=== PATIENT | male | born 1990 | race Hispanic/Latino ===

== ENCOUNTER 2021-02-17 23:24 | Emergency (ER) | payer OTHER ==
[~2021-02-17] VITALS: Ht 162.6 cm; Wt 72.6 kg
[2021-02-18 00:20] LABS: AMPHET/METH SCREEN,URINE POSITIVE (NEGATIVE); BARBITURATE SCREEN, URINE NEGATIVE (NEGATIVE); BENZODIAZEPINES SCREEN,URINE NEGATIVE (NEGATIVE); CANNABINOID SCREEN,URINE NEGATIVE (NEGATIVE); COCAINE SCREEN,URINE NEGATIVE (NEGATIVE); OPIATE SCREEN,URINE NEGATIVE (NEGATIVE); PHENCYCLIDINE SCREEN,URINE NEGATIVE (NEGATIVE)
[2021-02-18 00:27] LABS: CARBON DIOXIDE 25 mmol/L (21-32); CHLORIDE 102 mmol/L (101-111); GLOMERULAR FILTR. RATE CALC 94 mL/min (>60); GLUCOSE,RANDOM 118 mg/dL (70-105); POTASSIUM 3.7 mmol/L (3.5-5.1); SODIUM SERUM 139 mmol/L (136-145); UREA NITROGEN, BLOOD 10 mg/dL (7-18)
[2021-02-18 00:33] LABS: ALANINE AMINOTRANSFERASE 94 U/L (12-78); ALCOHOL, BLOOD < 3 mg/dL (0-10); ASPARTATE AMINOTRANSFERASE 47 U/L (10-37); BILIRUBIN,TOTAL 0.4 mg/dL (0.2-1.0)
[2021-02-18 00:40] LABS: BASOPHILS % (AUTO) 0.3 % (0.0-5.0); EOSINOPHILS % (AUTO) 2.3 % (0.0-8.0); HEMATOCRIT 43.2 % (42-54); LYMPHOCYTES % (AUTO) 16.1 % (21.0-51.0); MEAN CORPUSCULAR HEMOGLOBIN 27.5 pg (27.0-33.0); MEAN CORPUSCULAR HGB CONC 33.6 g/dL (32.0-36.0); MONOCYTES % (AUTO) 6.8 % (3.0-13.0); NEUTROPHILS % (AUTO) 72.8 % (40.0-77.0); PLATELET COUNT (AUTO) 256 K/uL (130-400); RED BLOOD CELL COUNT(AUTO) 5.27 MIL/uL (4.50-6.20); RED CELL DISTRIBUTION WIDTH 13.1 % (11.0-15.5); WHITE BLOOD COUNT (AUTO) 3.5 K/uL (4.8-10.8)
[2021-02-18 02:20] VITALS: BP 112/75
== END 2021-02-18 02:00 | disposition home or self-care (01) ==
LOC: EDH 23:24
DX: R56.9 Unspecified convulsions (principal); F15.10 Other stimulant abuse, uncomplicated; F13.239 Sedative, hypnotic or anxiolytic dependence with withdrawal, unspecified
CPT/HCPCS: 36415; 70450; 80053; 80305; 85025

== ENCOUNTER 2021-10-01 14:14 | Inpatient (IN) | payer OTHER ==
[~2021-10-01] VITALS: Ht 170.2 cm; Wt 68.0 kg
[2021-10-01 14:55] LABS: BASOPHILS % (AUTO) 0.2 % (0.0-5.0); EOSINOPHILS % (AUTO) 0.6 % (0.0-8.0); LYMPHOCYTES % (AUTO) 23.8 % (21.0-51.0); MEAN CORPUSCULAR HEMOGLOBIN 28.8 pg (27.0-33.0); MEAN CORPUSCULAR HGB CONC 34.1 g/dL (32.0-36.0); MEAN CORPUSCULAR VOLUME 84.7 fL (79-99); MONOCYTES % (AUTO) 6.9 % (3.0-13.0); NEUTROPHILS % (AUTO) 63.9 % (40.0-77.0); PLATELET COUNT (AUTO) 339 K/uL (130-400); RED BLOOD CELL COUNT(AUTO) 3.78 MIL/uL (4.50-6.20); RED CELL DISTRIBUTION WIDTH 14.5 % (11.0-15.5); WHITE BLOOD COUNT (AUTO) 10.7 K/uL (4.8-10.8)
[2021-10-01 15:14] LABS: CREATININE 0.9 mg/dL (0.5-1.5); POTASSIUM 4.1 mmol/L (3.5-5.1)
[2021-10-01 15:19] LABS: ALBUMIN 2.4 g/dL (3.5-5.0); TOTAL PROTEIN, SERUM 7.8 g/dL (6.0-8.3)
[2021-10-01] MEDS ORDERED: ACETAMINOPHEN 500 MG TABLET PO ONE (17:30)
[2021-10-01] MEDS ORDERED: NYSTATIN 100000 UNIT/ML 5ML UDCUP PO SCH (17:30)
[2021-10-01] MEDS ORDERED: ACETAMINOPHEN 650 MG/20.3 ML UDCUP PO ONE (17:30)
[2021-10-01] MEDS ORDERED: 0.9%NACL 1000ML 1,000 ML IV ONE (17:30)
[2021-10-01] MEDS ORDERED: ACETAMINOPHEN 650 MG/20.3 ML UDCUP PEG ONE (17:30)
[2021-10-01] MEDS ORDERED: ACETAMINOPHEN 650 MG/20.3 ML UDCUP PEG PRN (18:00)
[2021-10-01] MEDS ORDERED: CEFTRIAXONE 2GM VIAL IVP SCH (18:00)
[2021-10-01 18:01] LABS: ABG BASE EXCESS -4.3 mmol/L (-2.0-3.0); ABG HCO3 18.5 mmol/L (21.0-28.0); ABG OXYGEN SATURATION 91.7 % (95.0-99.0); ABG PCO2 27 mmHg (35-48)
[2021-10-01] MEDS ORDERED: BACTRIM IV ONE (18:30)
[2021-10-01] MEDS ORDERED: PANTOPRAZOLE 40 MG/VIAL IVP SCH (18:30)
[2021-10-01] MEDS ORDERED: WATER IV ONE (18:30)
[2021-10-01] MEDS ORDERED: IPRATROPIUM/ALBUTEROL SULFATE 3 ML SOLUTION IH PRN (18:30)
[2021-10-01] MEDS ORDERED: PHARMACY COMMUNICATION MISC SCH (18:30)
[2021-10-01] MEDS ORDERED: DEXTROSE 5% IV ONE (18:30)
[2021-10-01] MEDS: 0.9%NACL 1000ML 1,000 ML IV SCH (18:49)
[2021-10-01] MEDS: DOXYCYCLINE 100MG+NS 250ML IV SCH (18:49)
[2021-10-01] MEDS ORDERED: THIAMINE HCL 100 MG/ML 2ML VIAL IVP SCH (19:00)
[2021-10-01 19:41] LABS: CRP QUANTITATIVE 130.1 mg/L (0.00-9.0); MAGNESIUM 1.9 mg/dL (1.80-2.40)
[2021-10-01 19:42] LABS: INR 1.06 (0.85-1.15); PROTHROMBIN TIME 11.5 SEC (9.6-11.6)
[2021-10-01 19:43] LABS: PARTIAL THROMBOPLASTIN TIME 29.1 SEC (26.3-35.5)
[2021-10-01] MEDS: SOLU-MEDROL 40MG VIAL IVP SCH (20:21)
[2021-10-01 21:25] LABS: CREATININE 0.7 mg/dL (0.5-1.5); POTASSIUM 3.3 mmol/L (3.5-5.1)
[2021-10-01] MEDS ORDERED: CEFEPIME HCL 2 GM VIAL IVP SCH (23:00)
[2021-10-01] MEDS ORDERED: ROCURONIUM BROMIDE 10MG/1ML 5ML VL IV ONE ×2 (23:19)
[2021-10-01] MEDS ORDERED: ETOMIDATE 20MG VIAL IVP ONE (23:19)
[2021-10-02] VITALS (18 sets, daily range): BP systolic 97–132; BP diastolic 40–81
[2021-10-02] MEDS ORDERED: ACETAMINOPHEN 650 MG/20.3 ML UDCUP PO PRN
[2021-10-02] MEDS: FLUCONAZOLE 200 MG/NS 100 ML 100 ML IV SCH ×2 (01:33→08:51)
[2021-10-02 02:31] LABS: HEPATITIS A IGM ANTIBODY Non-Reactive (Nonreactive); HEPATITIS B CORE IGM ANTIBODY Non-Reactive (Negative); HEPATITIS B SURFACE ANTIGEN Non-Reactive (Nonreactive); HEPATITIS C ANTIBODY Non-Reactive (Nonreactive)
[2021-10-02] MEDS: BACTRIM IV SCH ×4 (05:57→20:33)
[2021-10-02] MEDS: WATER IV SCH ×4 (05:57→20:33)
[2021-10-02] MEDS: DEXTROSE 5% IV SCH ×4 (05:57→20:33)
[2021-10-02] MEDS: DOXYCYCLINE 100MG+NS 250ML IV SCH ×2 (05:57→16:58)
[2021-10-02] MEDS: SOLU-MEDROL 40MG VIAL IVP SCH ×5 (05:57→23:15)
[2021-10-02 06:12] LABS: BASOPHILS % (AUTO) 0.2 % (0.0-5.0); EOSINOPHILS % (AUTO) 0.2 % (0.0-8.0); HEMATOCRIT 30.4 % (42-54); LYMPHOCYTES % (AUTO) 17.1 % (21.0-51.0); MEAN CORPUSCULAR HEMOGLOBIN 28.1 pg (27.0-33.0); MEAN CORPUSCULAR HGB CONC 31.9 g/dL (32.0-36.0); MEAN CORPUSCULAR VOLUME 88.1 fL (79-99); MONOCYTES % (AUTO) 2.6 % (3.0-13.0); NEUTROPHILS % (AUTO) 73.1 % (40.0-77.0); PLATELET COUNT (AUTO) 315 K/uL (130-400); RED BLOOD CELL COUNT(AUTO) 3.45 MIL/uL (4.50-6.20); RED CELL DISTRIBUTION WIDTH 14.7 % (11.0-15.5); WHITE BLOOD COUNT (AUTO) 6.2 K/uL (4.8-10.8)
[2021-10-02 06:27] LABS: ALBUMIN 1.8 g/dL (3.5-5.0); CREATININE 0.7 mg/dL (0.5-1.5); TOTAL PROTEIN, SERUM 6.2 g/dL (6.0-8.3)
[2021-10-02] MEDS: BUDESONIDE 0.5 MG/2 ML INH IH SCH ×2 (06:37→19:57)
[2021-10-02] MEDS: GUAIFENESIN-CODEINE 5 ML SYRUP PO PRN ×2 (08:51→22:03)
[2021-10-02] MEDS: ENOXAPARIN SODIUM 40 MG/0.4 ML SYRINGE SQ SCH (08:51)
[2021-10-02 10:02] LABS: RAPID PLASMA REAGIN REACTIVE (NONREACTIVE); RAPID PLASMA REAGIN TITER REACTIVE >1:16 (NONREACTIVE)
[2021-10-02] MEDS ORDERED: SODIUM CHLORIDE 7% INHALATION 4 ML VIAL.NEB IH ONE (11:01)
[2021-10-02] MEDS: 0.9%NACL 1000ML 1,000 ML IV SCH ×2 (11:22→23:16)
[2021-10-02] MEDS: NYSTATIN 100000 UNIT/ML 5ML UDCUP PO SCH ×3 (11:22→20:33)
[2021-10-02] MEDS: CEFEPIME HCL 2 GM VIAL IVP SCH ×2 (15:20→22:02)
[2021-10-03] VITALS: BP 110/67
[2021-10-03] MEDS: DEXTROSE 5% IV SCH ×4 (03:11→21:14)
[2021-10-03] MEDS: WATER IV SCH ×4 (03:11→21:14)
[2021-10-03] MEDS: BACTRIM IV SCH ×4 (03:11→21:14)
[2021-10-03 04:01] LABS: BASOPHILS % (AUTO) 0.1 % (0.0-5.0); HEMATOCRIT 28.6 % (42-54); LYMPHOCYTES % (AUTO) 11.7 % (21.0-51.0); MEAN CORPUSCULAR HEMOGLOBIN 28.5 pg (27.0-33.0); MEAN CORPUSCULAR HGB CONC 32.9 g/dL (32.0-36.0); MEAN CORPUSCULAR VOLUME 86.7 fL (79-99); MONOCYTES % (AUTO) 4.4 % (3.0-13.0); NEUTROPHILS % (AUTO) 78.3 % (40.0-77.0); PLATELET COUNT (AUTO) 315 K/uL (130-400); RED CELL DISTRIBUTION WIDTH 14.6 % (11.0-15.5); WHITE BLOOD COUNT (AUTO) 7.9 K/uL (4.8-10.8)
[2021-10-03 04:02] VITALS: BP 117/65
[2021-10-03 04:31] LABS: ALBUMIN 1.7 g/dL (3.5-5.0); CREATININE 0.7 mg/dL (0.5-1.5); POTASSIUM 4.5 mmol/L (3.5-5.1)
[2021-10-03] MEDS: DOXYCYCLINE 100MG+NS 250ML IV SCH ×2 (05:26→18:12)
[2021-10-03] MEDS ORDERED: SODIUM CHLORIDE 7% INHALATION 4 ML VIAL.NEB IH ONE (06:19)
[2021-10-03] MEDS: CEFEPIME HCL 2 GM VIAL IVP SCH ×3 (06:30→22:41)
[2021-10-03] MEDS: BUDESONIDE 0.5 MG/2 ML INH IH SCH ×2 (06:47→19:14)
[2021-10-03 08:00] VITALS: BP 100/62
[2021-10-03] MEDS: FLUCONAZOLE 200 MG/NS 100 ML 100 ML IV SCH ×2 (08:23→09:00)
[2021-10-03] MEDS: ENOXAPARIN SODIUM 40 MG/0.4 ML SYRINGE SQ SCH (08:24)
[2021-10-03] MEDS: PANTOPRAZOLE 40 MG/VIAL IVP SCH (08:25)
[2021-10-03] MEDS: SOLU-MEDROL 40MG VIAL IVP SCH ×3 (08:25→21:13)
[2021-10-03] MEDS: NYSTATIN 100000 UNIT/ML 5ML UDCUP PO SCH ×3 (09:44→21:13)
[2021-10-03 11:52] LABS: APPEARANCE,URINE SL CLOUDY (CLEAR); BILIRUBIN,URINE NEGATIVE (NEGATIVE); COLOR,URINE YELLOW (YELLOW); GLUCOSE, URINE (UA) NEGATIVE (NEGATIVE); KETONES,URINE NEGATIVE (NEGATIVE); LEUKOCYTE ESTERASE ,URINE NEGATIVE (NEGATIVE); NITRATE,URINE NEGATIVE (NEGATIVE); OCCULT BLOOD,URINE MODERATE (NEGATIVE); PH,URINE 6.5 (5.0-8.0); PROTEIN,URINE NEGATIVE (NEGATIVE); UROBILINOGEN,URINE 0.2 mg/dL (0.2-1.0)
[2021-10-03 12:00] VITALS: BP 108/62
[2021-10-03 12:01] LABS: AMPHET/METH SCREEN,URINE NEGATIVE (NEGATIVE); BARBITURATE SCREEN, URINE NEGATIVE (NEGATIVE); BENZODIAZEPINES SCREEN,URINE NEGATIVE (NEGATIVE); CANNABINOID SCREEN,URINE NEGATIVE (NEGATIVE); COCAINE SCREEN,URINE NEGATIVE (NEGATIVE); OPIATE SCREEN,URINE POSITIVE (NEGATIVE); PHENCYCLIDINE SCREEN,URINE NEGATIVE (NEGATIVE)
[2021-10-03 12:06] LABS: BACTERIA,URINE Few /HPF (None Seen); RBC,URINE >100 /HPF (0-1); WBC,URINE 0-1 /HPF (0-1)
[2021-10-03 16:00] VITALS: BP 103/60
[2021-10-03] MEDS ORDERED: GUAIFENESIN-DM 200/20 MG 10 ML PO PRN (18:30)
[2021-10-03] MEDS: GUAIFENESIN-CODEINE 5 ML SYRUP PO PRN (19:48)
[2021-10-03 20:00] VITALS: BP 111/53
[2021-10-04] VITALS (7 sets, daily range): BP systolic 94–154; BP diastolic 51–93
[2021-10-04] MEDS: WATER IV SCH ×4 (03:16→21:31)
[2021-10-04] MEDS: BACTRIM IV SCH ×4 (03:16→21:31)
[2021-10-04] MEDS: DEXTROSE 5% IV SCH ×4 (03:16→21:31)
[2021-10-04] MEDS: GUAIFENESIN-CODEINE 5 ML SYRUP PO PRN ×2 (03:24→11:15)
[2021-10-04] MEDS: SOLU-MEDROL 40MG VIAL IVP SCH ×4 (03:24→21:10)
[2021-10-04 03:56] LABS: BASOPHILS % (AUTO) 0.2 % (0.0-5.0); HEMATOCRIT 33.6 % (42-54); LYMPHOCYTES % (AUTO) 7.4 % (21.0-51.0); MEAN CORPUSCULAR HEMOGLOBIN 28.6 pg (27.0-33.0); MEAN CORPUSCULAR HGB CONC 32.7 g/dL (32.0-36.0); MEAN CORPUSCULAR VOLUME 87.5 fL (79-99); MONOCYTES % (AUTO) 5.8 % (3.0-13.0); NEUTROPHILS % (AUTO) 80.5 % (40.0-77.0); PLATELET COUNT (AUTO) 407 K/uL (130-400); RED BLOOD CELL COUNT(AUTO) 3.84 MIL/uL (4.50-6.20); RED CELL DISTRIBUTION WIDTH 14.8 % (11.0-15.5); WHITE BLOOD COUNT (AUTO) 9.4 K/uL (4.8-10.8)
[2021-10-04 04:34] LABS: ALBUMIN 1.9 g/dL (3.5-5.0); CREATININE 0.8 mg/dL (0.5-1.5); POTASSIUM 4.4 mmol/L (3.5-5.1); THYROID STIMULATING HORMONE 0.53 uIU/mL (0.36-3.74); TOTAL PROTEIN, SERUM 6.3 g/dL (6.0-8.3)
[2021-10-04 04:43] LABS: % IRON SATURATION 80.7 % (30-44)
[2021-10-04] MEDS: DOXYCYCLINE 100MG+NS 250ML IV SCH ×2 (05:53→18:09)
[2021-10-04] MEDS: CEFEPIME HCL 2 GM VIAL IVP SCH ×3 (06:15→22:27)
[2021-10-04] MEDS ORDERED: SODIUM CHLORIDE 7% INHALATION 4 ML VIAL.NEB IH ONE (06:21)
[2021-10-04] MEDS: BUDESONIDE 0.5 MG/2 ML INH IH SCH ×2 (07:00→18:00)
[2021-10-04] MEDS: ENOXAPARIN SODIUM 40 MG/0.4 ML SYRINGE SQ SCH (08:55)
[2021-10-04] MEDS: PANTOPRAZOLE 40 MG/VIAL IVP SCH (08:55)
[2021-10-04] MEDS: NYSTATIN 100000 UNIT/ML 5ML UDCUP PO SCH ×3 (08:55→21:10)
[2021-10-04] MEDS: FLUCONAZOLE 200 MG/NS 100 ML 100 ML IV SCH ×2 (08:56→09:00)
[2021-10-04] MEDS: BUSPIRONE HCL 5 MG TABLET PO SCH ×3 (14:23→21:10)
[2021-10-05] VITALS: BP 99/52
[2021-10-05] MEDS: SOLU-MEDROL 40MG VIAL IVP SCH ×4 (02:31→21:03)
[2021-10-05] MEDS: GUAIFENESIN-CODEINE 5 ML SYRUP PO PRN ×2 (02:32→22:44)
[2021-10-05] MEDS: BACTRIM IV SCH ×4 (02:46→22:43)
[2021-10-05] MEDS: WATER IV SCH ×4 (02:46→22:43)
[2021-10-05] MEDS: DEXTROSE 5% IV SCH ×4 (02:46→22:43)
[2021-10-05 04:00] VITALS: BP 92/45
[2021-10-05 04:20] LABS: BASOPHILS % (AUTO) 0.3 % (0.0-5.0); HEMATOCRIT 31.6 % (42-54); LYMPHOCYTES % (AUTO) 7.5 % (21.0-51.0); MEAN CORPUSCULAR HEMOGLOBIN 28.4 pg (27.0-33.0); MEAN CORPUSCULAR HGB CONC 32.6 g/dL (32.0-36.0); MEAN CORPUSCULAR VOLUME 87.1 fL (79-99); MONOCYTES % (AUTO) 4.2 % (3.0-13.0); NEUTROPHILS % (AUTO) 82.5 % (40.0-77.0); PLATELET COUNT (AUTO) 328 K/uL (130-400); RED BLOOD CELL COUNT(AUTO) 3.63 MIL/uL (4.50-6.20); WHITE BLOOD COUNT (AUTO) 6.9 K/uL (4.8-10.8)
[2021-10-05 04:47] LABS: ALBUMIN 1.8 g/dL (3.5-5.0); CREATININE 0.8 mg/dL (0.5-1.5); POTASSIUM 4.4 mmol/L (3.5-5.1); TOTAL PROTEIN, SERUM 5.7 g/dL (6.0-8.3)
[2021-10-05] MEDS: CEFEPIME HCL 2 GM VIAL IVP SCH ×3 (05:01→22:43)
[2021-10-05] MEDS: DOXYCYCLINE 100MG+NS 250ML IV SCH ×2 (05:53→21:10)
[2021-10-05 08:00] VITALS: BP 113/59
[2021-10-05] MEDS: FLUCONAZOLE 200 MG/NS 100 ML 100 ML IV SCH ×2 (09:00→11:12)
[2021-10-05] MEDS: BUDESONIDE 0.5 MG/2 ML INH IH SCH ×2 (09:51→18:27)
[2021-10-05] MEDS: ENOXAPARIN SODIUM 40 MG/0.4 ML SYRINGE SQ SCH (11:11)
[2021-10-05] MEDS: BUSPIRONE HCL 5 MG TABLET PO SCH ×2 (11:11→21:02)
[2021-10-05] MEDS: NYSTATIN 100000 UNIT/ML 5ML UDCUP PO SCH ×3 (11:11→21:02)
[2021-10-05] MEDS: PANTOPRAZOLE 40 MG/VIAL IVP SCH (11:12)
[2021-10-05 11:40] VITALS: BP 110/59
[2021-10-05 15:59] VITALS: BP 116/49
[2021-10-05 20:00] VITALS: BP 119/56
[2021-10-06] VITALS (7 sets, daily range): BP systolic 96–126; BP diastolic 47–79
[2021-10-06] MEDS: SOLU-MEDROL 40MG VIAL IVP SCH ×4 (02:41→21:33)
[2021-10-06] MEDS: DEXTROSE 5% IV SCH ×4 (04:19→21:30)
[2021-10-06] MEDS: WATER IV SCH ×4 (04:19→21:30)
[2021-10-06] MEDS: BACTRIM IV SCH ×4 (04:19→21:30)
[2021-10-06] MEDS: BUDESONIDE 0.5 MG/2 ML INH IH SCH ×2 (06:00→18:00)
[2021-10-06] MEDS: FLUCONAZOLE 200 MG/NS 100 ML 100 ML IV SCH ×2 (09:00→09:22)
[2021-10-06] MEDS: BUSPIRONE HCL 5 MG TABLET PO SCH ×2 (09:00→21:00)
[2021-10-06] MEDS: PANTOPRAZOLE 40 MG/VIAL IVP SCH (09:21)
[2021-10-06] MEDS: GUAIFENESIN-CODEINE 5 ML SYRUP PO PRN (09:21)
[2021-10-06] MEDS: NYSTATIN 100000 UNIT/ML 5ML UDCUP PO SCH ×3 (09:22→21:33)
[2021-10-06] MEDS: ENOXAPARIN SODIUM 40 MG/0.4 ML SYRINGE SQ SCH (09:22)
[2021-10-06] MEDS: CEFEPIME HCL 2 GM VIAL IVP SCH ×3 (09:28→23:26)
[2021-10-06] MEDS: DOXYCYCLINE 100MG+NS 250ML IV SCH ×2 (11:41→17:34)
[2021-10-06 13:46] LABS: HIV SCREEN 4TH GENERATION Preliminary Reactive (Non Reactive)
[2021-10-06 14:00] LABS: INR 1.03 (0.85-1.15); PROTHROMBIN TIME 11.2 SEC (9.6-11.6)
[2021-10-06] MEDS ORDERED: HYDROXYZINE 25 MG TABLET PO PRN (17:00)
[2021-10-06] MEDS: MIRTAZAPINE 15 MG TABLET PO SCH (21:00)
[2021-10-07] MEDS: GUAIFENESIN-CODEINE 5 ML SYRUP PO PRN ×2 (00:40→22:34)
[2021-10-07] MEDS: SOLU-MEDROL 40MG VIAL IVP SCH ×4 (03:27→22:07)
[2021-10-07] MEDS: DEXTROSE 5% IV SCH ×4 (03:28→22:07)
[2021-10-07] MEDS: BACTRIM IV SCH ×4 (03:28→22:07)
[2021-10-07] MEDS: WATER IV SCH ×4 (03:28→22:07)
[2021-10-07 04:15] VITALS: BP 101/48
[2021-10-07 05:03] LABS: BASOPHILS % (AUTO) 0.1 % (0.0-5.0); HEMATOCRIT 31.1 % (42-54); LYMPHOCYTES % (AUTO) 6.9 % (21.0-51.0); MEAN CORPUSCULAR HEMOGLOBIN 28.9 pg (27.0-33.0); MEAN CORPUSCULAR HGB CONC 33.8 g/dL (32.0-36.0); MEAN CORPUSCULAR VOLUME 85.7 fL (79-99); MONOCYTES % (AUTO) 3.5 % (3.0-13.0); PLATELET COUNT (AUTO) 316 K/uL (130-400); RED BLOOD CELL COUNT(AUTO) 3.63 MIL/uL (4.50-6.20); RED CELL DISTRIBUTION WIDTH 15.2 % (11.0-15.5); WHITE BLOOD COUNT (AUTO) 7.1 K/uL (4.8-10.8)
[2021-10-07 05:48] LABS: ALBUMIN 1.9 g/dL (3.5-5.0); CREATININE 0.8 mg/dL (0.5-1.5); POTASSIUM 4.6 mmol/L (3.5-5.1); TOTAL PROTEIN, SERUM 5.4 g/dL (6.0-8.3)
[2021-10-07] MEDS: DOXYCYCLINE 100MG+NS 250ML IV SCH ×2 (05:52→18:21)
[2021-10-07] MEDS: CEFEPIME HCL 2 GM VIAL IVP SCH ×3 (06:09→22:27)
[2021-10-07] MEDS: BUDESONIDE 0.5 MG/2 ML INH IH SCH ×2 (06:20→18:11)
[2021-10-07 08:00] VITALS: BP 114/51
[2021-10-07] MEDS: FLUCONAZOLE 200 MG/NS 100 ML 100 ML IV SCH ×3 (09:00→11:01)
[2021-10-07] MEDS: PANTOPRAZOLE 40 MG/VIAL IVP SCH (09:36)
[2021-10-07] MEDS: BUSPIRONE HCL 5 MG TABLET PO SCH ×2 (09:37→22:06)
[2021-10-07] MEDS: PAROXETINE HCL 20 MG TABLET PO SCH (09:37)
[2021-10-07] MEDS: ENOXAPARIN SODIUM 40 MG/0.4 ML SYRINGE SQ SCH (09:37)
[2021-10-07] MEDS: NYSTATIN 100000 UNIT/ML 5ML UDCUP PO SCH ×3 (09:40→22:06)
[2021-10-07 12:00] VITALS: BP 120/46
[2021-10-07 16:00] VITALS: BP 112/53
[2021-10-07 20:17] VITALS: BP 109/46
[2021-10-07] MEDS: MIRTAZAPINE 15 MG TABLET PO SCH (22:01)
[2021-10-07 23:32] VITALS: BP 120/45
[2021-10-08] MEDS: BENZOCAINE/MENTH/CETYLPYRD CL 1 EACH LOZENGE MM PRN (01:25)
[2021-10-08] MEDS ORDERED: BENZONATATE 100 MG CAPSULE PO PRN (01:30)
[2021-10-08] MEDS: DEXTROSE 5% IV SCH ×4 (03:46→21:38)
[2021-10-08] MEDS: WATER IV SCH ×4 (03:46→21:38)
[2021-10-08] MEDS: BACTRIM IV SCH ×4 (03:46→21:38)
[2021-10-08] MEDS: SOLU-MEDROL 40MG VIAL IVP SCH ×4 (03:46→21:38)
[2021-10-08 04:20] VITALS: BP 116/50
[2021-10-08 05:29] LABS: BASOPHILS % (AUTO) 0.1 % (0.0-5.0); HEMATOCRIT 33.1 % (42-54); MEAN CORPUSCULAR HEMOGLOBIN 28.5 pg (27.0-33.0); MEAN CORPUSCULAR HGB CONC 33.2 g/dL (32.0-36.0); MEAN CORPUSCULAR VOLUME 85.8 fL (79-99); MONOCYTES % (AUTO) 3.4 % (3.0-13.0); NEUTROPHILS % (AUTO) 85.2 % (40.0-77.0); PLATELET COUNT (AUTO) 321 K/uL (130-400); RED BLOOD CELL COUNT(AUTO) 3.86 MIL/uL (4.50-6.20); RED CELL DISTRIBUTION WIDTH 15.3 % (11.0-15.5); WHITE BLOOD COUNT (AUTO) 8.6 K/uL (4.8-10.8)
[2021-10-08 05:45] LABS: ALBUMIN 1.8 g/dL (3.5-5.0); CREATININE 0.8 mg/dL (0.5-1.5); POTASSIUM 4.3 mmol/L (3.5-5.1); TOTAL PROTEIN, SERUM 5.2 g/dL (6.0-8.3)
[2021-10-08] MEDS: BUDESONIDE 0.5 MG/2 ML INH IH SCH ×2 (06:24→17:49)
[2021-10-08] MEDS: DOXYCYCLINE 100MG+NS 250ML IV SCH ×2 (06:44→18:25)
[2021-10-08] MEDS: CEFEPIME HCL 2 GM VIAL IVP SCH ×3 (06:44→21:38)
[2021-10-08 07:55] VITALS: BP 113/50
[2021-10-08] MEDS: BUSPIRONE HCL 5 MG TABLET PO SCH ×2 (10:00→21:38)
[2021-10-08] MEDS: PAROXETINE HCL 20 MG TABLET PO SCH (10:00)
[2021-10-08] MEDS: PANTOPRAZOLE 40 MG/VIAL IVP SCH (10:00)
[2021-10-08] MEDS: NYSTATIN 100000 UNIT/ML 5ML UDCUP PO SCH ×3 (10:00→21:38)
[2021-10-08] MEDS: ENOXAPARIN SODIUM 40 MG/0.4 ML SYRINGE SQ SCH (10:10)
[2021-10-08] MEDS: SODIUM BICARBONATE 650 MG TAB PO SCH ×2 (10:11→21:38)
[2021-10-08 11:00] VITALS: BP 109/54
[2021-10-08] MEDS: FLUCONAZOLE 200 MG/NS 100 ML 100 ML IV SCH (12:43)
[2021-10-08 16:00] VITALS: BP 113/50
[2021-10-08 20:03] VITALS: BP 116/54
[2021-10-08] MEDS: MIRTAZAPINE 15 MG TABLET PO SCH (21:38)
[2021-10-08 23:34] VITALS: BP 112/61
[2021-10-09] MEDS: DEXTROSE 5% IV SCH ×4 (03:54→21:08)
[2021-10-09] MEDS: BACTRIM IV SCH ×4 (03:54→21:08)
[2021-10-09] MEDS: WATER IV SCH ×4 (03:54→21:08)
[2021-10-09] MEDS: SOLU-MEDROL 40MG VIAL IVP SCH ×4 (03:55→20:58)
[2021-10-09 04:17] VITALS: BP 107/51
[2021-10-09 05:23] LABS: BASOPHILS % (AUTO) 0.2 % (0.0-5.0); HEMATOCRIT 34.8 % (42-54); LYMPHOCYTES % (AUTO) 5.8 % (21.0-51.0); MEAN CORPUSCULAR HEMOGLOBIN 28.8 pg (27.0-33.0); MEAN CORPUSCULAR HGB CONC 33.3 g/dL (32.0-36.0); MEAN CORPUSCULAR VOLUME 86.4 fL (79-99); NEUTROPHILS % (AUTO) 83.3 % (40.0-77.0); PLATELET COUNT (AUTO) 285 K/uL (130-400); RED BLOOD CELL COUNT(AUTO) 4.03 MIL/uL (4.50-6.20); RED CELL DISTRIBUTION WIDTH 15.6 % (11.0-15.5)
[2021-10-09 05:44] LABS: ALBUMIN 1.7 g/dL (3.5-5.0); CREATININE 0.8 mg/dL (0.5-1.5); POTASSIUM 4.7 mmol/L (3.5-5.1)
[2021-10-09] MEDS: BUDESONIDE 0.5 MG/2 ML INH IH SCH ×2 (06:00→18:00)
[2021-10-09] MEDS: GUAIFENESIN-CODEINE 5 ML SYRUP PO PRN ×3 (06:35→23:33)
[2021-10-09] MEDS: DOXYCYCLINE 100MG+NS 250ML IV SCH ×2 (06:35→17:41)
[2021-10-09] MEDS: CEFEPIME HCL 2 GM VIAL IVP SCH ×3 (06:35→23:33)
[2021-10-09 08:00] VITALS: BP 117/49
[2021-10-09] MEDS: PANTOPRAZOLE 40 MG/VIAL IVP SCH (08:48)
[2021-10-09] MEDS: SODIUM BICARBONATE 650 MG TAB PO SCH ×2 (08:48→21:01)
[2021-10-09] MEDS: FLUCONAZOLE 200 MG/NS 100 ML 100 ML IV SCH ×2 (08:48→09:00)
[2021-10-09] MEDS: NYSTATIN 100000 UNIT/ML 5ML UDCUP PO SCH ×3 (08:48→20:59)
[2021-10-09] MEDS: PAROXETINE HCL 20 MG TABLET PO SCH (08:49)
[2021-10-09] MEDS: BUSPIRONE HCL 5 MG TABLET PO SCH ×2 (08:49→21:00)
[2021-10-09] MEDS: ENOXAPARIN SODIUM 40 MG/0.4 ML SYRINGE SQ SCH (08:50)
[2021-10-09 11:50] VITALS: BP 122/57
[2021-10-09] MEDS: BENZOCAINE/MENTH/CETYLPYRD CL 1 EACH LOZENGE MM PRN ×2 (12:09→23:33)
[2021-10-09] MEDS ORDERED: MEGESTROL 400 MG/10 ML UDCUP PO SCH (13:00)
[2021-10-09] MEDS: MEGESTROL 400 MG/10 ML UDCUP PO SCH (13:21)
[2021-10-09 16:00] VITALS: BP_SYST 112; BP_SYST 135; BP_DIAS 54; BP_DIAS 74
[2021-10-09 20:21] VITALS: BP 101/78
[2021-10-09] MEDS: MIRTAZAPINE 15 MG TABLET PO SCH (21:01)
[2021-10-09] MEDS ORDERED: DIPHENOXYLATE HCL/ATROPINE 2.5/0.025 MG TAB PO PRN (23:00)
[2021-10-09 23:43] VITALS: BP 124/57
[2021-10-10] VITALS (8 sets, daily range): BP systolic 99–167; BP diastolic 46–75
[2021-10-10] MEDS: DEXTROSE 5% IV SCH ×4 (02:21→20:50)
[2021-10-10] MEDS: BACTRIM IV SCH ×4 (02:21→20:50)
[2021-10-10] MEDS: WATER IV SCH ×4 (02:21→20:50)
[2021-10-10] MEDS: SOLU-MEDROL 40MG VIAL IVP SCH ×3 (04:08→19:57)
[2021-10-10] MEDS: DOXYCYCLINE 100MG+NS 250ML IV SCH ×2 (04:41→18:22)
[2021-10-10 05:42] LABS: RED BLOOD CELL COUNT(AUTO) 4.35 MIL/uL (4.50-6.20); WHITE BLOOD COUNT (AUTO) 10.5 K/uL (4.8-10.8)
[2021-10-10 05:43] LABS: BASOPHILS % (AUTO) 0.4 % (0.0-5.0); HEMATOCRIT 37.8 % (42-54); MEAN CORPUSCULAR HEMOGLOBIN 28.3 pg (27.0-33.0); MEAN CORPUSCULAR HGB CONC 32.5 g/dL (32.0-36.0); MEAN CORPUSCULAR VOLUME 86.9 fL (79-99); MONOCYTES % (AUTO) 3.4 % (3.0-13.0); NEUTROPHILS % (AUTO) 79.7 % (40.0-77.0); PLATELET COUNT (AUTO) 260 K/uL (130-400); RED CELL DISTRIBUTION WIDTH 15.7 % (11.0-15.5)
[2021-10-10 06:00] LABS: ALBUMIN 1.9 g/dL (3.5-5.0); CREATININE 0.7 mg/dL (0.5-1.5); CRP QUANTITATIVE 23.9 mg/L (0.00-9.0); MAGNESIUM 1.8 mg/dL (1.80-2.40); PHOSPHORUS 3.7 mg/dL (2.5-4.9); POTASSIUM 4.7 mmol/L (3.5-5.1); TOTAL PROTEIN, SERUM 5.1 g/dL (6.0-8.3)
[2021-10-10] MEDS: CEFEPIME HCL 2 GM VIAL IVP SCH ×3 (06:12→23:24)
[2021-10-10 06:57] LABS: ERYTHROCYTE SEDIMENTATION RATE 7 MM/HR (0-15)
[2021-10-10] MEDS: NYSTATIN 100000 UNIT/ML 5ML UDCUP PO SCH ×3 (08:46→19:57)
[2021-10-10] MEDS: MEGESTROL 400 MG/10 ML UDCUP PO SCH (08:47)
[2021-10-10] MEDS: BUSPIRONE HCL 5 MG TABLET PO SCH ×2 (08:47→19:58)
[2021-10-10] MEDS: ENOXAPARIN SODIUM 40 MG/0.4 ML SYRINGE SQ SCH (08:48)
[2021-10-10] MEDS: PAROXETINE HCL 20 MG TABLET PO SCH (08:48)
[2021-10-10] MEDS: PANTOPRAZOLE 40 MG/VIAL IVP SCH (08:48)
[2021-10-10] MEDS: SODIUM BICARBONATE 650 MG TAB PO SCH ×3 (08:48→19:58)
[2021-10-10 14:41] LABS: ABG BASE EXCESS -4.9 mmol/L (-2.0-3.0); ABG HCO3 17.4 mmol/L (21.0-28.0); ABG OXYGEN SATURATION 96.2 % (95.0-99.0); ABG PCO2 26 mmHg (35-48)
[2021-10-10] MEDS: MIRTAZAPINE 15 MG TABLET PO SCH (19:57)
[2021-10-10] MEDS: GUAIFENESIN-CODEINE 5 ML SYRUP PO PRN (19:58)
[2021-10-11] VITALS (25 sets, daily range): BP systolic 94–160; BP diastolic 45–88
[2021-10-11] MEDS: BACTRIM IV SCH ×4 (02:57→21:54)
[2021-10-11] MEDS: WATER IV SCH ×4 (02:57→21:54)
[2021-10-11] MEDS: DEXTROSE 5% IV SCH ×4 (02:57→21:54)
[2021-10-11] MEDS: GUAIFENESIN-CODEINE 5 ML SYRUP PO PRN ×2 (02:58→20:53)
[2021-10-11 04:10] LABS: BASOPHILS % (AUTO) 0.3 % (0.0-5.0); EOSINOPHILS % (AUTO) 0.1 % (0.0-8.0); HEMATOCRIT 34.7 % (42-54); LYMPHOCYTES % (AUTO) 5.7 % (21.0-51.0); MEAN CORPUSCULAR HGB CONC 33.4 g/dL (32.0-36.0); MEAN CORPUSCULAR VOLUME 83.8 fL (79-99); NEUTROPHILS % (AUTO) 80.7 % (40.0-77.0); PLATELET COUNT (AUTO) 215 K/uL (130-400); RED BLOOD CELL COUNT(AUTO) 4.14 MIL/uL (4.50-6.20); WHITE BLOOD COUNT (AUTO) 10.8 K/uL (4.8-10.8)
[2021-10-11 04:24] LABS: ALBUMIN 1.6 g/dL (3.5-5.0); CREATININE 0.7 mg/dL (0.5-1.5); POTASSIUM 4.6 mmol/L (3.5-5.1); TOTAL PROTEIN, SERUM 4.5 g/dL (6.0-8.3)
[2021-10-11] MEDS: SOLU-MEDROL 40MG VIAL IVP SCH ×3 (04:43→20:39)
[2021-10-11] MEDS: DOXYCYCLINE 100MG+NS 250ML IV SCH ×2 (04:43→17:07)
[2021-10-11] MEDS: CEFEPIME HCL 2 GM VIAL IVP SCH ×3 (06:38→23:16)
[2021-10-11] MEDS: NYSTATIN 100000 UNIT/ML 5ML UDCUP PO SCH ×4 (09:00→20:38)
[2021-10-11] MEDS: MEGESTROL 400 MG/10 ML UDCUP PO SCH ×2 (09:00→09:11)
[2021-10-11] MEDS: SODIUM BICARBONATE 650 MG TAB PO SCH ×3 (09:00→20:39)
[2021-10-11] MEDS: PANTOPRAZOLE 40 MG/VIAL IVP SCH (09:09)
[2021-10-11] MEDS: BUSPIRONE HCL 5 MG TABLET PO SCH ×2 (09:10→20:38)
[2021-10-11] MEDS: PAROXETINE HCL 20 MG TABLET PO SCH (09:11)
[2021-10-11] MEDS: ENOXAPARIN SODIUM 40 MG/0.4 ML SYRINGE SQ SCH (09:12)
[2021-10-11] MEDS ORDERED: PENICILLIN G BENZATHINE LA 1.2 MILUNITS/2 ML SYG IM SCH (15:23)
[2021-10-11] MEDS: MIRTAZAPINE 15 MG TABLET PO SCH (20:39)
[2021-10-12] VITALS (23 sets, daily range): BP systolic 93–129; BP diastolic 51–87
[2021-10-12] MEDS: BACTRIM IV SCH ×4 (03:00→22:22)
[2021-10-12] MEDS: DEXTROSE 5% IV SCH ×4 (03:00→22:22)
[2021-10-12] MEDS: WATER IV SCH ×4 (03:00→22:22)
[2021-10-12 03:45] LABS: BASOPHILS % (AUTO) 0.3 % (0.0-5.0); EOSINOPHILS % (AUTO) 1.3 % (0.0-8.0); HEMATOCRIT 35.7 % (42-54); LYMPHOCYTES % (AUTO) 6.2 % (21.0-51.0); MEAN CORPUSCULAR HEMOGLOBIN 28.9 pg (27.0-33.0); MEAN CORPUSCULAR HGB CONC 34.2 g/dL (32.0-36.0); MEAN CORPUSCULAR VOLUME 84.6 fL (79-99); MONOCYTES % (AUTO) 2.7 % (3.0-13.0); NUCLEATED RED BLOOD CELLS 0.2 % (0.0-0.19); PLATELET COUNT (AUTO) 199 K/uL (130-400); RED BLOOD CELL COUNT(AUTO) 4.22 MIL/uL (4.50-6.20)
[2021-10-12 03:58] LABS: ALBUMIN 1.8 g/dL (3.5-5.0); CREATININE 0.7 mg/dL (0.5-1.5); POTASSIUM 5.2 mmol/L (3.5-5.1)
[2021-10-12] MEDS: SOLU-MEDROL 40MG VIAL IVP SCH ×4 (04:20→22:12)
[2021-10-12] MEDS: DOXYCYCLINE 100MG+NS 250ML IV SCH ×2 (05:22→18:00)
[2021-10-12] MEDS: CEFEPIME HCL 2 GM VIAL IVP SCH ×3 (06:07→23:44)
[2021-10-12] MEDS ORDERED: NA ZIRCON CYCLOSIL(LOKELMA 10GM) PO SCH (07:30)
[2021-10-12 07:54] LABS: CRP QUANTITATIVE 18.9 mg/L (0.00-9.0); MAGNESIUM 1.7 mg/dL (1.80-2.40)
[2021-10-12] MEDS: SODIUM BICARBONATE 650 MG TAB PO SCH ×2 (09:09→21:08)
[2021-10-12] MEDS: ENOXAPARIN SODIUM 40 MG/0.4 ML SYRINGE SQ SCH (09:09)
[2021-10-12] MEDS: SODIUM CHLORIDE 1,000 MG TAB PO SCH ×3 (09:09→21:08)
[2021-10-12] MEDS: MEGESTROL 400 MG/10 ML UDCUP PO SCH (09:11)
[2021-10-12] MEDS: BUSPIRONE HCL 5 MG TABLET PO SCH ×2 (09:11→21:08)
[2021-10-12] MEDS: NYSTATIN 100000 UNIT/ML 5ML UDCUP PO SCH ×3 (09:11→21:08)
[2021-10-12] MEDS: PANTOPRAZOLE 40 MG/VIAL IVP SCH (09:12)
[2021-10-12] MEDS ORDERED: MAGNESIUM 2GM PREMIX 50ML 50 ML IV ONE (10:17)
[2021-10-12] MEDS ORDERED: MAGNESIUM 2GM PREMIX 50ML 50 ML IV PRN (10:30)
[2021-10-12 11:01] LABS: CREATININE 0.7 mg/dL (0.5-1.5); URIC ACID 2.5 mg/dL (2.6-7.2)
[2021-10-12] MEDS ORDERED: SOLU-MEDROL 125MG VIAL IVP ONE (13:30)
[2021-10-13] VITALS (23 sets, daily range): BP systolic 89–155; BP diastolic 31–101
[2021-10-13 03:42] LABS: BASOPHILS % (AUTO) 0.1 % (0.0-5.0); EOSINOPHILS % (AUTO) 0.1 % (0.0-8.0); LYMPHOCYTES % (AUTO) 3.7 % (21.0-51.0); MEAN CORPUSCULAR HEMOGLOBIN 28.8 pg (27.0-33.0); MEAN CORPUSCULAR HGB CONC 35.1 g/dL (32.0-36.0); MONOCYTES % (AUTO) 1.9 % (3.0-13.0); NEUTROPHILS % (AUTO) 88.7 % (40.0-77.0); PLATELET COUNT (AUTO) 171 K/uL (130-400); RED BLOOD CELL COUNT(AUTO) 4.27 MIL/uL (4.50-6.20); RED CELL DISTRIBUTION WIDTH 14.6 % (11.0-15.5); WHITE BLOOD COUNT (AUTO) 14.4 K/uL (4.8-10.8)
[2021-10-13 03:57] LABS: ABG BASE EXCESS -4.8 mmol/L (-2.0-3.0); ABG HCO3 15.9 mmol/L (21.0-28.0); ABG OXYGEN SATURATION 91.9 % (95.0-99.0); ABG PCO2 21 mmHg (35-48)
[2021-10-13 04:03] LABS: ALBUMIN 1.8 g/dL (3.5-5.0); CREATININE 0.6 mg/dL (0.5-1.5); CRP QUANTITATIVE 4.7 mg/L (0.00-9.0); MAGNESIUM 2.2 mg/dL (1.80-2.40); POTASSIUM 5.2 mmol/L (3.5-5.1); TOTAL PROTEIN, SERUM 4.8 g/dL (6.0-8.3)
[2021-10-13 05:08] LABS: INR 0.98 (0.85-1.15); PROTHROMBIN TIME 10.7 SEC (9.6-11.6)
[2021-10-13 05:09] LABS: PARTIAL THROMBOPLASTIN TIME 28.8 SEC (26.3-35.5)
[2021-10-13] MEDS: SOLU-MEDROL 40MG VIAL IVP SCH ×4 (07:41→19:41)
[2021-10-13] MEDS: BACTRIM IV SCH ×4 (07:42→21:59)
[2021-10-13] MEDS: WATER IV SCH ×4 (07:42→21:59)
[2021-10-13] MEDS: DEXTROSE 5% IV SCH ×4 (07:42→21:59)
[2021-10-13] MEDS ORDERED: SODIUM BICARB 8.4% 50ML SYRING 0 MEQ in DEXTROSE 5%-WATER 1,000 ML IVP SCH (08:30)
[2021-10-13] MEDS: MEGESTROL 400 MG/10 ML UDCUP PO SCH (09:04)
[2021-10-13] MEDS: SODIUM CHLORIDE 1,000 MG TAB PO SCH ×3 (09:04→20:08)
[2021-10-13] MEDS: PANTOPRAZOLE 40 MG/VIAL IVP SCH (09:04)
[2021-10-13] MEDS: CEFEPIME HCL 2 GM VIAL IVP SCH ×3 (09:04→23:34)
[2021-10-13] MEDS: DOXYCYCLINE 100MG+NS 250ML IV SCH ×2 (09:04→17:40)
[2021-10-13] MEDS: NYSTATIN 100000 UNIT/ML 5ML UDCUP PO SCH ×3 (09:05→20:08)
[2021-10-13] MEDS: BUSPIRONE HCL 5 MG TABLET PO SCH ×2 (09:05→20:07)
[2021-10-13] MEDS: SODIUM BICARBONATE 650 MG TAB PO SCH (09:05)
[2021-10-13] MEDS: ENOXAPARIN SODIUM 40 MG/0.4 ML SYRINGE SQ SCH (09:06)
[2021-10-13] MEDS: SODIUM BICARB 8.4% 50ML SYRING 150 MEQ in DEXTROSE 5%-WATER 850 ML IVP SCH ×2 (10:31→19:36)
[2021-10-13 12:30] LABS: CREATININE 0.6 mg/dL (0.5-1.5); POTASSIUM 4.8 mmol/L (3.5-5.1)
[2021-10-13] MEDS ORDERED: FUROSEMIDE 20MG VIAL IV ONE (14:30)
[2021-10-13] MEDS: GUAIFENESIN-CODEINE 5 ML SYRUP PO PRN (20:07)
[2021-10-14] VITALS (23 sets, daily range): BP systolic 92–136; BP diastolic 29–102
[2021-10-14] MEDS: SOLU-MEDROL 40MG VIAL IVP SCH ×4 (01:54→20:23)
[2021-10-14] MEDS: SODIUM BICARB 8.4% 50ML SYRING 150 MEQ in DEXTROSE 5%-WATER 850 ML IVP SCH ×2 (02:02→15:15)
[2021-10-14] MEDS: BACTRIM IV SCH ×4 (02:55→21:06)
[2021-10-14] MEDS: DEXTROSE 5% IV SCH ×4 (02:55→21:06)
[2021-10-14] MEDS: WATER IV SCH ×4 (02:55→21:06)
[2021-10-14] MEDS: GUAIFENESIN-CODEINE 5 ML SYRUP PO PRN ×2 (03:58→23:25)
[2021-10-14 04:05] LABS: BASOPHILS % (AUTO) 0.1 % (0.0-5.0); HEMATOCRIT 31.3 % (42-54); LYMPHOCYTES % (AUTO) 2.5 % (21.0-51.0); MEAN CORPUSCULAR HEMOGLOBIN 28.9 pg (27.0-33.0); MEAN CORPUSCULAR HGB CONC 35.1 g/dL (32.0-36.0); MEAN CORPUSCULAR VOLUME 82.4 fL (79-99); MONOCYTES % (AUTO) 1.9 % (3.0-13.0); NEUTROPHILS % (AUTO) 91.1 % (40.0-77.0); PLATELET COUNT (AUTO) 137 K/uL (130-400); RED CELL DISTRIBUTION WIDTH 14.7 % (11.0-15.5); WHITE BLOOD COUNT (AUTO) 15.6 K/uL (4.8-10.8)
[2021-10-14 04:13] LABS: CREATININE 0.7 mg/dL (0.5-1.5); MAGNESIUM 1.7 mg/dL (1.80-2.40); POTASSIUM 4.9 mmol/L (3.5-5.1)
[2021-10-14] MEDS: DOXYCYCLINE 100MG+NS 250ML IV SCH ×2 (06:12→17:36)
[2021-10-14 06:33] LABS: ABG BASE EXCESS 1.9 mmol/L (-2.0-3.0); ABG HCO3 23.3 mmol/L (21.0-28.0); ABG OXYGEN SATURATION 90.6 % (95.0-99.0); ABG PCO2 27 mmHg (35-48)
[2021-10-14] MEDS: CEFEPIME HCL 2 GM VIAL IVP SCH ×3 (07:13→23:17)
[2021-10-14] MEDS: PANTOPRAZOLE 40 MG/VIAL IVP SCH (08:46)
[2021-10-14] MEDS: ENOXAPARIN SODIUM 40 MG/0.4 ML SYRINGE SQ SCH (08:47)
[2021-10-14] MEDS: NYSTATIN 100000 UNIT/ML 5ML UDCUP PO SCH (08:48)
[2021-10-14] MEDS: BUSPIRONE HCL 5 MG TABLET PO SCH (08:48)
[2021-10-14] MEDS: MEGESTROL 400 MG/10 ML UDCUP PO SCH (08:48)
[2021-10-14] MEDS: SODIUM CHLORIDE 1,000 MG TAB PO SCH ×3 (08:48→20:23)
[2021-10-14] MEDS: CLOTRIMAZOLE 10 MG TROCHE MM SCH ×4 (12:23→20:24)
[2021-10-14] MEDS ORDERED: ONDANSETRON 4MG INJ IVP PRN (12:30)
[2021-10-14] MEDS ORDERED: NACL NASAL SPRAY 120 SPRAY/BOTTLE NS PRN (13:00)
[2021-10-14] MEDS ORDERED: DiphenhydrAMINE HCL 50 MG/ML VIAL ONE (15:13)
[2021-10-14] MEDS: BENZOCAINE/MENTH/CETYLPYRD CL 1 EACH LOZENGE MM PRN ×2 (15:17→23:25)
[2021-10-14] MEDS ORDERED: LIDOCAINE HCL 2% VISCOUS 15 ML UDCUP PO PRN (15:30)
[2021-10-14] MEDS ORDERED: DiphenhydrAMINE HCL 50 MG/ML VIAL IV PRN (15:30)
[2021-10-14] MEDS ORDERED: KETOROLAC 15MG/ML VIAL (15MG/ML) ONE (17:34)
[2021-10-14] MEDS: KETOROLAC 15MG/ML VIAL (15MG/ML) IV PRN ×2 (18:01→23:46)
[2021-10-15] VITALS (107 sets, daily range): BP systolic 56–155; BP diastolic 24–125
[2021-10-15] MEDS ORDERED: SODIUM BICARB 50MEQ 50ML VIAL 100 ML ONE (00:30)
[2021-10-15] MEDS ORDERED: DEXTROSE 5%-WATER 0 ML IV ONE (00:32)
[2021-10-15 00:49] LABS: ABG BASE EXCESS 5.8 mmol/L (-2.0-3.0); ABG HCO3 27.8 mmol/L (21.0-28.0); ABG OXYGEN SATURATION 88.5 % (95.0-99.0); ABG PCO2 32 mmHg (35-48)
[2021-10-15] MEDS ORDERED: LORAZEPAM 2 MG TABLET PO ONE (01:00)
[2021-10-15] MEDS: WATER IV SCH ×4 (01:25→21:52)
[2021-10-15] MEDS: DEXTROSE 5% IV SCH ×4 (01:25→21:52)
[2021-10-15] MEDS: 0.9%NACL 1000ML 1,000 ML IV SCH ×3 (01:25→15:22)
[2021-10-15] MEDS: SOLU-MEDROL 40MG VIAL IVP SCH ×3 (01:25→13:18)
[2021-10-15] MEDS: BACTRIM IV SCH ×4 (01:25→21:52)
[2021-10-15] MEDS ORDERED: LORAZEPAM 1 MG TABLET ONE ×2 (01:28→01:32)
[2021-10-15] MEDS: 0.9% NACL 500ML IV.SOLN 500 ML IV SCH ×2 (01:46→01:49)
[2021-10-15] MEDS: IPRATROPIUM 0.5 MG/2.5 ML INH IH SCH ×6 (02:16→22:16)
[2021-10-15] MEDS: ALBUTEROL 0.083% 2.5 MG/3 ML INH IH SCH ×6 (02:16→22:16)
[2021-10-15 02:50] LABS: CHLORIDE,URINE RANDOM 22 mmol/L (110-250); CREATININE,URINE RANDOM 92 mg/dL (30-135); POTASSIUM,URINE RANDOM 56 mmol/L (25-125); SODIUM,URINE RANDOM 62 mmol/l (40-220)
[2021-10-15] MEDS ORDERED: DEXMEDETOMIDINE 400MCG/NS100ML IV ONE (03:46)
[2021-10-15 03:53] LABS: BASOPHILS % (AUTO) 0.2 % (0.0-5.0); HEMATOCRIT 30.2 % (42-54); LYMPHOCYTES % (AUTO) 4.4 % (21.0-51.0); MEAN CORPUSCULAR HEMOGLOBIN 29.2 pg (27.0-33.0); MEAN CORPUSCULAR HGB CONC 35.8 g/dL (32.0-36.0); MEAN CORPUSCULAR VOLUME 81.6 fL (79-99); MONOCYTES % (AUTO) 2.3 % (3.0-13.0); PLATELET COUNT (AUTO) 117 K/uL (130-400); RED CELL DISTRIBUTION WIDTH 14.5 % (11.0-15.5); WHITE BLOOD COUNT (AUTO) 23.2 K/uL (4.8-10.8)
[2021-10-15] MEDS ORDERED: LEVETIRACETAM 500 MG/5 ML SD VIAL IV SCH ×2 (04:00→21:00)
[2021-10-15] MEDS ORDERED: LORAZEPAM 2 MG/ML 1 ML VIAL IVP PRN (04:00)
[2021-10-15] MEDS ORDERED: DEXMEDETOMIDINE 400MCG/NS100ML IV SCH (04:00)
[2021-10-15] MEDS ORDERED: 0.9%NACL 1000ML 1,323 ML IV ONE (04:00)
[2021-10-15 04:09] LABS: ALANINE AMINOTRANSFERASE 144 U/L (12-78); ALBUMIN 1.3 g/dL (3.5-5.0); AMMONIA 43 umol/L (11-32); ASPARTATE AMINOTRANSFERASE 127 U/L (10-37); CARBON DIOXIDE 23 mmol/L (21-32); CREATININE 0.8 mg/dL (0.5-1.5); GLOMERULAR FILTR. RATE CALC 121 mL/min (>60); GLUCOSE,RANDOM 143 mg/dL (70-105); POTASSIUM 4.8 mmol/L (3.5-5.1); SODIUM SERUM 113 mmol/L (136-145); TOTAL PROTEIN, SERUM 3.4 g/dL (6.0-8.3); UREA NITROGEN, BLOOD 34 mg/dL (7-18)
[2021-10-15] MEDS ORDERED: FENTANYL 2500MCG+NS 250ML 250 ML IV ONE ×2 (04:16→21:18)
[2021-10-15] MEDS ORDERED: LEVETIRACETAM 1,000 MG in 0.9%NACL 100ML 100 ML IV ONE (04:30)
[2021-10-15] MEDS ORDERED: MIDAZOLAM 50MG-0.9% NS 50ML 50 ML IV SCH (04:30)
[2021-10-15] MEDS ORDERED: FENTANYL CITRATE PF 0.05 MG/ML 1,000 MCG in 0.9%NACL 100ML 100 ML IVPB PRN (04:30)
[2021-10-15] MEDS ORDERED: MIDAZOLAM 100MG-0.9% NS 100ML 50 ML IV PRN (04:30)
[2021-10-15] MEDS ORDERED: [UNRECOGNIZED DRUG - OTHER] IV SCH (04:30)
[2021-10-15] MEDS ORDERED: ETOMIDATE 20MG VIAL IVP SCH (04:30)
[2021-10-15] MEDS ORDERED: ROCURONIUM BROMIDE IV SCH (04:30)
[2021-10-15] MEDS ORDERED: METOPROLOL TARTRATE 1 MG/ML 5ML VIAL IV STA (04:54)
[2021-10-15] MEDS ORDERED: MIDAZOLAM 50MG-0.9% NS 50ML 50 ML IV PRN (05:00)
[2021-10-15 05:11] LABS: CHLORIDE 82 mmol/L (101-111)
[2021-10-15] MEDS: DOXYCYCLINE 100MG+NS 250ML IV SCH (05:20)
[2021-10-15 05:22] LABS: ABG BASE EXCESS -3.3 mmol/L (-2.0-3.0); ABG HCO3 24.5 mmol/L (21.0-28.0); ABG OXYGEN SATURATION 78.4 % (95.0-99.0); ABG PCO2 57 mmHg (35-48)
[2021-10-15] MEDS ORDERED: NOREPINEPHRIN 4MG/NS 250ML 250 ML IV ONE (06:39)
[2021-10-15] MEDS: CEFEPIME HCL 2 GM VIAL IVP SCH (06:43)
[2021-10-15] MEDS ORDERED: PHARMACY COMMUNICATION MISC SCH (07:00)
[2021-10-15] MEDS ORDERED: CISATRACURIUM BESYLATE 100 MG in 0.9%NACL 100ML 90 ML IV PRN (07:19)
[2021-10-15] MEDS: LEVETIRACETAM 1,000 MG in 0.9%NACL 100ML 100 ML IV SCH (07:30)
[2021-10-15] MEDS ORDERED: COMPOUND IV REFRIGERATED 1 EACH IVSOLN MISC PRN (07:30)
[2021-10-15] MEDS ORDERED: PANTOPRAZOLE 40 MG TAB DR PO SCH (09:00)
[2021-10-15] MEDS ORDERED: NICOTINE 14 MG/ 24 HR PATCH TD SCH (09:00)
[2021-10-15] MEDS ORDERED: PANTOPRAZOLE 40 MG/VIAL IVP SCH (09:00)
[2021-10-15 09:13] LABS: HEMATOCRIT 31.3 % (42-54); MEAN CORPUSCULAR HEMOGLOBIN 29.1 pg (27.0-33.0); MEAN CORPUSCULAR HGB CONC 34.8 g/dL (32.0-36.0); MEAN CORPUSCULAR VOLUME 83.7 fL (79-99); PLATELET COUNT (AUTO) 103 K/uL (130-400); RED BLOOD CELL COUNT(AUTO) 3.74 MIL/uL (4.50-6.20); RED CELL DISTRIBUTION WIDTH 14.4 % (11.0-15.5); WHITE BLOOD COUNT (AUTO) 25.1 K/uL (4.8-10.8)
[2021-10-15] MEDS: CLOTRIMAZOLE 10 MG TROCHE MM SCH ×4 (09:13→21:57)
[2021-10-15] MEDS: MEGESTROL 400 MG/10 ML UDCUP PO SCH (09:13)
[2021-10-15] MEDS: SODIUM CHLORIDE 1,000 MG TAB PO SCH ×3 (09:13→22:12)
[2021-10-15] MEDS: PHENYLEPHRINE HCL 10 MG in 0.9% NACL 250ML 250 ML IV PRN ×4 (09:35→16:32)
[2021-10-15 09:52] LABS: CREATININE 0.6 mg/dL (0.5-1.5); MAGNESIUM 1.7 mg/dL (1.80-2.40); POTASSIUM 4.4 mmol/L (3.5-5.1)
[2021-10-15] MEDS: SODIUM BICARB 8.4% 50ML SYRING 150 MEQ in DEXTROSE 5%-WATER 850 ML IVP SCH (11:10)
[2021-10-15 11:12] LABS: EOSINOPHILS % (MANUAL) 1 % (1-6); LYMPHOCYTES % (MANUAL) 32 % (22-44); MAN.DIFF COMMENT-IMPRESSION MANUAL DIFFERENTIAL; MONOCYTES % (MANUAL) 6 % (2-9); PLATELET MORPHOLOGY COMMENT ADEQUATE; SEGMENTED NEUTROPHILS % 61 % (40-70)
[2021-10-15] MEDS ORDERED: VANCOMYCIN PROTOCOL PER PHARMACY IV SCH (13:00)
[2021-10-15] MEDS ORDERED: VANCOMYCIN 1.25 GM/250 ML BAG 250 ML IV ONE (13:00)
[2021-10-15] MEDS: MEROPENEM 1 GM VIAL IVP SCH ×2 (13:14→21:57)
[2021-10-15] MEDS: VASOPRESSIN 20 UNITS in 0.9%NACL 100ML 100 ML IV PRN ×2 (14:23→21:25)
[2021-10-15] MEDS ORDERED: PHENYLEPHRINE HCL 10 MG/ML 1ML VIAL IV ONE (14:30)
[2021-10-15] MEDS ORDERED: 0.9% NACL 250ML 250 ML ONE (14:31)
[2021-10-15] MEDS ORDERED: MIDAZOLAM 100MG-0.9% NS 100ML 100ML BAG IV ONE (16:30)
[2021-10-15] MEDS ORDERED: NOREPINEPHRINE 16MG/NS 250ML PREMIX IV SCH (19:00)
[2021-10-15] MEDS ORDERED: NOREPINEPHRIN 4MG/NS 250ML 250 ML IV SCH (19:00)
[2021-10-15] MEDS ORDERED: NOREPINEPHRINE 16MG/NS 250ML 250 ML IV SCH (19:00)
[2021-10-15] MEDS ORDERED: PHENYLEPHRINE HCL 100 MG in 0.9% NACL 250ML 250 ML IV SCH (19:00)
[2021-10-15] MEDS ORDERED: NOREPINEPHRINE BITARTRATE 32 MG in 0.9% NACL 250ML 250 ML IV PRN (20:00)
[2021-10-15] MEDS ORDERED: SODIUM BICARB 50MEQ 50ML VIAL IV ONE ×2 (20:30→21:30)
[2021-10-15] MEDS ORDERED: MIDODRINE HCL 5 MG TABLET PO SCH (21:00)
[2021-10-15] MEDS ORDERED: LEVETIRACETAM 500 MG in 0.9%NACL 100ML 100 ML IV SCH (21:00)
[2021-10-15] MEDS ORDERED: VANCOMYCIN 1G/250ML KIT 250 ML IV SCH (21:00)
[2021-10-15] MEDS ORDERED: FENTANYL 2500MCG+NS 250ML IV.SOLN IV SCH (22:00)
[2021-10-16] MEDS ORDERED: HYDROCORTISONE SOD SUCCINATE 100 MG/2 ML VIAL IM SCH
== END 2021-10-15 23:20 | DRG 974 ==
LOC: EDH 14:14 → EDHIP 14:15 → 2CH 23:47 → 2AH 10-02 18:48 → 3AH 10-04 23:05 → 2BH 10-10 19:45
PROVIDERS: ADMIT Internal Medicine; ATTEND Internal Medicine
PROC: 5A1935Z Respiratory Ventilation, Less than 24 Consecutive Hours (ICD-10-PCS; principal; 2021-10-15)
PROC: 0BH17EZ Insertion of Endotracheal Airway into Trachea, Via Natural or Artificial Opening (ICD-10-PCS; 2021-10-15)
PROC: 02HV33Z Insertion of Infusion Device into Superior Vena Cava, Percutaneous Approach (ICD-10-PCS; 2021-10-15)
DX: A41.9 Sepsis, unspecified organism (principal); E43 Unspecified severe protein-calorie malnutrition; B20 Human immunodeficiency virus [HIV] disease; B59 Pneumocystosis; J15.9 Unspecified bacterial pneumonia; J80 Acute respiratory distress syndrome; B37.0 Candidal stomatitis; C46.9 Kaposi's sarcoma, unspecified; B37.89 Other sites of candidiasis; E22.2 Syndrome of inappropriate secretion of antidiuretic hormone; F41.9 Anxiety disorder, unspecified; Z20.822 Contact with and (suspected) exposure to COVID-19; Z68.23 Body mass index [BMI] 23.0-23.9, adult; R62.7 Adult failure to thrive; K75.9 Inflammatory liver disease, unspecified; E86.1 Hypovolemia; R13.12 Dysphagia, oropharyngeal phase; K80.20 Calculus of gallbladder without cholecystitis without obstruction; Z91.19 Patient's noncompliance with other medical treatment and regimen; E11.9 Type 2 diabetes mellitus without complications; E66.9 Obesity, unspecified
CPT/HCPCS: 31500; 36415; 36600; 70360; 71045; 76705; 80048; 80053; 80074; 80305; 81001; 82010; 82140; 82435; 82436; 82533; 82550; 82570; 82607; 82728; 82746; 82803; 82947; 82948; 83540; 83550; 83605; 83615; 83735; 83880; 83930; 83935; 84100; 84132; 84133; 84145; 84295; 84300; 84443; 84550; 85018; 85025; 85045; 85610; 85651; 85730; 86140; 86359; 86361; 86480; 86592; 86606; 86612; 86701; 86777; 86778; 86780; 87040; 87071; 87088; 87116; 87205; 87206; 87389; 87390; 87536; 87635; 87804; 87880; 87901; 92610; 93306; 93971; 94002; 94640; 94660; 97039; 99291; C1751; C1894; C9113; C9803; G0378; J0561; J0692; J0696; J1200; J1450; J1650; J1885; J1940; J1953; J2185; J2250; J2370; J2405; J2920; J2930; J3010; J3370; J3411; J3475; J3490; J7030; J7040; J7050; J7060; J7070